=== PATIENT | female | born 1940 | race Caucasian/White ===

== ENCOUNTER → 2020-08-27 | Outpatient (CLI) | payer MEDICARE, OTHER ==
[~2020-08-27] MED LIST: ACEDIPPM; HYDACE5 PO
[2020-08-27 17:31] LABS: BASOPHILS ABSOLUTE AUTO 0.08 K/mm3 (0.00-0.23); BASOPHILS PERCENT AUTO 2 % (0-2); EOSINOPHILS ABSOLUTE AUTO 0.14 K/mm3 (0.00-0.68); EOSINOPHILS PERCENT AUTO 3 % (0-6); Hematocrit 41.4 % (33.0-51.0); Hemoglobin 13.5 g/dL (11.5-16.0); IMMATURE GRAN ABSOLUTE AUTO 0.01 K/mm3 (0.00-0.10); IMMATURE GRAN PERCENT AUTO 0 % (0-1); LYMPHOCYTES ABSOLUTE AUTO 1.48 K/mm3 (0.84-5.20); LYMPHOCYTES PERCENT AUTO 29 % (21-46); MONOCYTES ABSOLUTE AUTO 0.43 K/mm3 (0.16-1.47); MONOCYTES PERCENT AUTO 9 % (4-13); Mean Corpuscular HGB 30.1 pg (26.0-34.0); Mean Corpuscular HGB Conc 32.6 g/dL (31.5-36.5); Mean Corpuscular Volume 92 fL (80-100); Mean Platelet Volume 10.7 fL (9.1-12.4); NEUTROPHILS ABSOLUTE AUTO 2.93 K/mm3 (1.96-9.15); NEUTROPHILS PERCENT AUTO 58 % (41-73); Platelet Count 195 K/mm3 (150-400); Red Blood Cell Count 4.48 M/mm3 (3.80-5.20); White Blood Cell Count 5.07 K/mm3 (4.00-11.30)
[2020-08-27 17:49] LABS: Alanine Aminotransfer (ALT/SGP 19 U/L (12-78); Albumin, Blood 4.1 g/dL (3.4-5.0); Albumin/Globulin Ratio 1.2 (0.8-1.8); Alk Phos 69 U/L (50-136); Anion Gap 4 mmol/L (6-16); Aspartate Aminotrans (AST/SGOT 14 U/L (12-37); Bilirubin, Total 0.6 mg/dL (0.1-1.0); Blood Urea Nitrogen 12 mg/dL (8-24); CHOL/HDL RATIO 3.3; CO2, Blood 27 mmol/L (21-32); Calcium, Blood 9.4 mg/dL (8.5-10.1); Chloride, Blood 107 mmol/L (98-108); Cholesterol 257 mg/dL (50-200); Globulin, Blood 3.4 g/dL (2.2-4.0); Glucose, Blood 88 mg/dL (70-99); HDL Cholesterol 79 mg/dL (>39); LDL/HDL RATIO 2.1; Low Density Lipoprotein Chol 163 mg/dL (0-110); Potassium, Blood 4.2 mmol/L (3.5-5.5); Sodium, Blood 138 mmol/L (136-145); Total Protein, Blood 7.5 g/dL (6.4-8.2); Triglycerides 73 mg/dL (30-160); Very Low Density Lipoprot Chol 14 mg/dL (6-32)
[2020-08-27 17:51] LABS: Creatinine, Blood 0.67 mg/dL (0.40-1.00); Glomerular Filtration Rate >60 (60-)
== END | disposition home or self-care (01) ==
LOC: LAB 12:00 → LAB SHORT 12:00
PROVIDERS: Internal Medicine
DX: I10 Essential (primary) hypertension (principal)
CPT/HCPCS: 80053; 80061; 85025

== ENCOUNTER → 2021-04-03 | Outpatient (CLI) | payer MEDICARE, OTHER ==
[2021-04-03 17:27] LABS: Thyroid Stimulating Hormone 2.27 uIU/mL (0.360-4.800)
[2021-04-08 13:10] LABS: ATYPICAL PANCA <1:20 titer (Neg:<1:20); CYTOPLASMIC (C-ANCA) <1:20 titer (Neg:<1:20); PERINUCLEAR (P-ANCA) <1:20 titer (Neg:<1:20)
== END ==
LOC: LAB 14:53 → LAB SHORT 14:53
PROVIDERS: Internal Medicine
DX: G62.9 Polyneuropathy, unspecified (principal); R53.83 Other fatigue; D51.9 Vitamin B12 deficiency anemia, unspecified
CPT/HCPCS: 82607; 82746; 84443; 85651; 86038; 86256

== ENCOUNTER → 2022-10-08 | Outpatient (CLI) | payer MEDICARE, OTHER ==
[~2022-10-08] MED LIST changes: +Aspir 8181 MG PO; +ELDERBERRY IMM1 EACH PO; +Hair, Skin & N1 EACH PO; +LOSA25 PO; +LOSA50 PO; +METOPROLOL SUCC25 MG PO; +ONDA4ODT MM; +THERA-D2000 UNIT PO; +TURMERIC1 GM PO; +[UNRECOGNIZED DRUG - CODE] SL
[2022-10-08 19:37] LABS: Alanine Aminotransfer (ALT/SGP 29 U/L (12-78); Albumin, Blood 3.8 g/dL (3.4-5.0); Albumin/Globulin Ratio 1.2 (0.8-1.8); Alk Phos 65 U/L (50-136); Anion Gap 3 mmol/L (6-16); Aspartate Aminotrans (AST/SGOT 18 U/L (12-37); Bilirubin, Total 0.3 mg/dL (0.1-1.0); Blood Urea Nitrogen 7 mg/dL (8-24); CHOL/HDL RATIO 2.7; CO2, Blood 28 mmol/L (21-32); Calcium, Blood 9.2 mg/dL (8.5-10.1); Chloride, Blood 103 mmol/L (98-108); Cholesterol 164 mg/dL (50-200); Globulin, Blood 3.2 g/dL (2.2-4.0); Glucose, Blood 76 mg/dL (70-99); HDL Cholesterol 61 mg/dL (>39); LDL/HDL RATIO 1.3; Low Density Lipoprotein Chol 79 mg/dL (0-110); Potassium, Blood 4.1 mmol/L (3.5-5.5); Sodium, Blood 134 mmol/L (136-145); Triglycerides 120 mg/dL (30-160); Very Low Density Lipoprot Chol 24 mg/dL (6-32)
[2022-10-08 19:39] LABS: Bun/Creatinine Ratio 13.3 (12.0-20.0); Creatinine, Blood 0.53 mg/dL (0.40-1.00); Glomerular Filtration Rate 92 (60-)
== END | disposition home or self-care (01) ==
LOC: LAB SHORT 15:43 → LAB 15:43
PROVIDERS: Nurse Practitioner Family
DX: Z13.220 Encounter for screening for lipoid disorders (principal); I10 Essential (primary) hypertension
CPT/HCPCS: 80053; 80061

== ENCOUNTER 2023-07-13 09:45 | Day surgery (SDC) | payer MEDICARE, OTHER ==
[2023-07-13] VITALS (17 sets, daily range): BP systolic 111–170; BP diastolic 59–84
[~2023-07-13] VITALS: Ht 159 cm; Wt 71.0 kg
[~2023-07-13 09:45] MED LIST changes: +Apple Cider Vi300 MG PO
[2023-07-13] MEDS ORDERED: Chlorhexidine Mouth Care 15 ML UDC MT SCH (10:20)
[2023-07-13] MEDS ORDERED: CeFAZolin Sodium 2,000 MG in NS 50 ML IV SCH ×2 (10:20→21:00)
[2023-07-13] MEDS ORDERED: Ropivacaine 0.5% HCl/Pf 67.75 MG,EPINEPHrine HCL 0.25 MG,Ketorolac Tromethamine 15 MG,C... INFIL SCH (10:20)
[2023-07-13] MEDS ORDERED: Acetaminophen 500 MG Tab PO SCH ×2 (10:20→16:00)
[2023-07-13] MEDS ORDERED: Lactated Ringer's 1,000 ML IV SCH ×2 (10:20→12:25)
[2023-07-13] MEDS ORDERED: OxyCODONE HCL 10 MG TABCR PO SCH (10:20)
[2023-07-13] MEDS ORDERED: Tranexamic Acid 710 MG in NS 100 ML IV SCH (10:45)
[2023-07-13] MEDS ORDERED: OxyCODONE HCL 5 MG TAB PO PRN ×2 (12:15)
[2023-07-13] MEDS ORDERED: Promethazine HCl 25 MG Tab PO PRN (12:15)
[2023-07-13] MEDS ORDERED: FLU VACC QS2023-24(6MOS UP)/PF 60 MCG/0.5 ML SYRINGE IM SCH (12:20)
[2023-07-13] MEDS ORDERED: Bisacodyl 10 MG Supp PR PRN (12:20)
[2023-07-13] MEDS ORDERED: HYDROmorphone HCl/Pf 1MG SYR IV PRN (12:20)
[2023-07-13] MEDS ORDERED: DiphenhydrAMINE HCL 25 MG Cap PO PRN (12:20)
[2023-07-13] MEDS ORDERED: Ondansetron HCl 2 MG / ML 2ML Vial IV PRN (12:25)
[2023-07-13] MEDS ORDERED: Magnesium Hydroxide Conc 10 ML UDC PO PRN (12:25)
[2023-07-13] MEDS ORDERED: Metoclopramide HCl 5MG / ML 2ML Vial IV PRN (12:25)
[2023-07-13] MEDS ORDERED: Midazolam HCl 1MG / ML 2ML Vial IV ONE (12:35)
[2023-07-13] MEDS ORDERED: ePHEDrine Sulfate 50 MG/ML 1ML Injection ONE (12:37)
[2023-07-13] MEDS ORDERED: FentaNYL Citrate 50 MCG/ML 2 ML Injection ONE (12:37)
[2023-07-13] MEDS ORDERED: propofoL 40 ML IV ONE (12:37)
[2023-07-13] MEDS ORDERED: Midazolam HCl 1MG / ML 2ML Vial ONE (12:37)
[2023-07-13] MEDS ORDERED: Dexamethasone Sod Phos 10 MG/ML 1ML VIAL ONE (14:52)
[2023-07-13] MEDS ORDERED: Ondansetron HCl 2 MG / ML 2ML Vial ONE (14:52)
--- NOTE | 2023-07-13 15:40 | NUR ---
POST OP ARRIVAL TO UNIT ALERT & PLEASANT. ASSESSMENT CHARTED. DENIES N/V. SNACKS & DRINKS GIVEN. SPINAL WNL. FAMILY AT BEDSIDE. SCRIPTS GIVEN TO DAUGHTER.
[2023-07-13] MEDS ORDERED: Ketorolac Tromethamine 15mg Vial IV SCH (18:00)
--- NOTE | 2023-07-13 18:45 | NUR ---
SHIFT SUMMARY AT THIS TIME, PT STILL CAN'T LIFT SURGICAL LEG SO HAS NOT BEEN OOB. EATING, DRINKING WELL.
[2023-07-13] MEDS ORDERED: Docusate Sodium 100 MG Cap PO SCH (21:00)
[2023-07-14 05:14] VITALS: BP 124/69
[2023-07-14 05:32] LABS: BASOPHILS ABSOLUTE AUTO 0.03 K/mm3 (0.00-0.23); BASOPHILS PERCENT AUTO 0 % (0-2); EOSINOPHILS ABSOLUTE AUTO 0.01 K/mm3 (0.00-0.68); EOSINOPHILS PERCENT AUTO 0 % (0-6); Hematocrit 34.8 % (33.0-51.0); Hemoglobin 11.4 g/dL (11.5-16.0); IMMATURE GRAN ABSOLUTE AUTO 0.04 K/mm3 (0.00-0.10); IMMATURE GRAN PERCENT AUTO 0 % (0-1); LYMPHOCYTES ABSOLUTE AUTO 1.13 K/mm3 (0.84-5.20); LYMPHOCYTES PERCENT AUTO 9 % (21-46); MONOCYTES PERCENT AUTO 5 % (4-13); Mean Corpuscular HGB 29.6 pg (26.0-34.0); Mean Corpuscular HGB Conc 32.8 g/dL (31.5-36.5); Mean Corpuscular Volume 90 fL (80-100); Mean Platelet Volume 9.6 fL (9.1-12.4); NEUTROPHILS ABSOLUTE AUTO 11.19 K/mm3 (1.96-9.15); NEUTROPHILS PERCENT AUTO 86 % (41-73); Platelet Count 223 K/mm3 (150-400); RDW Coefficient Variation 13.2 % (11.7-14.2); RDW Standard Deviation 43.8 fL (35.1-46.3); Red Blood Cell Count 3.85 M/mm3 (3.80-5.20)
--- NOTE | 2023-07-14 06:17 | NUR ---
SHIFT SUMMARY PT POD 0 R TKA. PT HAS VOIDED, AMBULATING AND TOLERATING PO INTAKE. PAIN MANAGED WITH MEDS PER EMAR. DRESSING C/D/I. PT DENIES N/T. POST OP VITALS STABLE. PLAN IS FOR DISCHARGE TODAY. BED IN LOWEST POSITION, CALL LIGHT WITHIN REACH.
[2023-07-14 06:46] LABS: Bun/Creatinine Ratio 26.1 (12.0-20.0); Calcium, Blood 9.1 mg/dL (8.5-10.1); Creatinine, Blood 0.46 mg/dL (0.40-1.00); Potassium, Blood 4.2 mmol/L (3.5-5.5)
[2023-07-14 07:05] VITALS: BP 144/70
[2023-07-14] MEDS ORDERED: Losartan Potassium 50 MG Tab PO ONE (08:15)
[2023-07-14] MEDS ORDERED: Percocet 5-3251 EACH PO (08:56)
[2023-07-14] MEDS ORDERED: Aspirin 81 MG Chew PO SCH (09:00)
[2023-07-14] MEDS ORDERED: Metoprolol Succinate 25 MG TABCR PO SCH (09:00)
--- NOTE | 2023-07-14 10:17 | NUR ---
DISCHARGE PT HAS CLEARED THERAPY. PAIN WELL CONTROLLED. EATING, DRINKING, & VOIDING WELL. DERRICK & POLAR PACK SENT w/ PT. (RX GIVEN TO DAUGHTER YESTERDAY) ESCORTED OUT VIA W/C.
== END 2023-07-14 10:17 | disposition home or self-care (01) ==
LOC: ORSCMMR 09:45 → ORD 11:00 → ORSCMMR 11:00 → SURS 15:59 → ORSCMMR 07-14 10:17
PROVIDERS: Orthopaedic Surgery
PROC: 0SRC0JA Replacement of Right Knee Joint with Synthetic Substitute, Uncemented, Open Approach (ICD-10-PCS; principal; 2023-07-13 11:00)
DX: M17.11 Unilateral primary osteoarthritis, right knee (principal); I10 Essential (primary) hypertension; Z79.899 Other long term (current) drug therapy
CPT/HCPCS: 36415; 73560-RT; 80048; 85025; 97110; 97116; 97162; A9270; C1713; C1776; J0171; J0690; J0735; J1100; J1885; J2250; J2405; J2704; J2795; J3010; J7120

== ENCOUNTER 2024-01-20 10:37 | Day surgery (SDC) | payer MEDICARE, OTHER ==
[~2024-01-20] VITALS: Ht 160 cm; Wt 70.7 kg
[~2024-01-20 10:37] MED LIST changes: +Lidocaine 1%-Epineph 1:100000 20 ML MDV ONE; +Percocet 5-3251 EACH PO
[2024-01-20] MEDS ORDERED: ALPRAZOLAM0.5 M1 PO (11:13)
[2024-01-20] MEDS ORDERED: Lactated Ringer's 1,000 ML IV ONE (11:19)
--- NOTE | 2024-01-20 11:20 | NUR ---
01/20/24 1120 Socorro Holly CALL LIGHT WITHIN REACH
[2024-01-20] MEDS ORDERED: Midazolam HCl 1MG / ML 2ML Vial ONE (11:57)
[2024-01-20 12:19] VITALS: BP 144/62
== END 2024-01-20 12:38 | disposition home or self-care (01) ==
LOC: ORSCSDS 10:37
PROVIDERS: Orthopaedic Surgery
PROC: 01N54ZZ Release Median Nerve, Percutaneous Endoscopic Approach (ICD-10-PCS; principal; 2024-01-20 12:30)
DX: G56.03 Carpal tunnel syndrome, bilateral upper limbs (principal); F32.A Depression, unspecified; I10 Essential (primary) hypertension; K21.9 Gastro-esophageal reflux disease without esophagitis; F41.9 Anxiety disorder, unspecified; I44.30 Unspecified atrioventricular block; Z87.891 Personal history of nicotine dependence; Z79.82 Long term (current) use of aspirin; Z79.899 Other long term (current) drug therapy
CPT/HCPCS: J2250; J7120

== ENCOUNTER 2024-03-16 09:07 | Day surgery (SDC) | payer MEDICARE, OTHER ==
[~2024-03-16] VITALS: Ht 160 cm; Wt 71.1 kg
[~2024-03-16 09:07] MED LIST changes: +ALPRAZOLAM0.5 M1 PO; +Lactated Ringer's 1,000 ML IV ONE; +Lactated Ringer's 1,000 ML ONE
[2024-03-16] MEDS ORDERED: Lactated Ringer's 1,000 ML IV ONE (09:28)
[2024-03-16] MEDS ORDERED: propofoL 20 ML IV ONE ×2 (09:47→10:16)
--- NOTE | 2024-03-16 09:50 | NUR ---
03/16/24 0927 Jennifer Conte T/O PERFORMED AT BEDSIDE WITH DR SEWELL AT 0945. 2 SEPARATE LOCAL INJECTIONS DONE IN LEFT HAND BY DR SEWELL. FIRST ONE AT 0946, INJECTION OF 8ML OF A MIXTURE OF 9ML 1% LIDOCAINE WITH EPI [id number] AND 1 ML 8.4% SODIUM BICARBONATE AND 2ND INJECTION DONE AT DIFFERENT LOCATION IN LEFT HAND OF 8ML SAME SOLUTION. PT TOLERATED PROCEDURE WELL.
[2024-03-16 10:39] VITALS: BP 126/69
== END 2024-03-16 11:10 | disposition home or self-care (01) ==
LOC: ORSCSDS 09:07
PROVIDERS: Orthopaedic Surgery
PROC: 01N54ZZ Release Median Nerve, Percutaneous Endoscopic Approach (ICD-10-PCS; principal; 2024-03-16 10:30)
PROC: 0LN80ZZ Release Left Hand Tendon, Open Approach (ICD-10-PCS; principal; 2024-03-16 10:30)
DX: G56.02 Carpal tunnel syndrome, left upper limb (principal); M65.332 Trigger finger, left middle finger; M65.342 Trigger finger, left ring finger; I10 Essential (primary) hypertension; F32.A Depression, unspecified; F41.9 Anxiety disorder, unspecified; Z87.891 Personal history of nicotine dependence; Z79.82 Long term (current) use of aspirin; Z79.899 Other long term (current) drug therapy
CPT/HCPCS: J2704; J7120